=== PATIENT | male | born 1940 | race Caucasian/White ===

== ENCOUNTER → 2020-06-01 | Outpatient (CLI) | payer OTHER ==
[2020-06-01 07:36] LABS: POTASSIUM 4.7 mmol/L (3.5-5.1)
== END ==
LOC: M.LAB 04:53
PROVIDERS: ATTEND Anesthesiology
DX: E11.9 Type 2 diabetes mellitus without complications (principal); E87.6 Hypokalemia

== ENCOUNTER 2020-10-17 18:18 | Emergency (ER) | payer OTHER ==
[~2020-10-17] VITALS: Ht 172.7 cm; Wt 77.1 kg
[2020-10-17 18:53] LABS: HEMATOCRIT 44.2 % (42.0-52.0); HEMOGLOBIN 15.1 gm/dL (14.0-18.0); MCH 28.7 pg (26.0-34.0); MCHC 34.3 g/dL (28.0-37.0); MCV 83.9 fL (80.0-100.0); NUCLEATED RBCS 0 /100WBC; PLATELET COUNT* 236 thou/uL (150-400); RBC 5.27 mil/uL (4.50-6.00); RDW-CV 12.2 % (10.5-14.5); WBC 9.1 thou/uL (4.0-11.0)
[2020-10-17 18:57] LABS: CALCIUM 8.9 mg/dL (8.5-10.1); CREATININE 1.5 mg/dL (0.6-1.3); POTASSIUM 3.7 mmol/L (3.5-5.1)
[2020-10-17 19:07] LABS: ALBUMIN 3.3 g/dL (3.4-5.0); TOTAL BILIRUBIN 1.2 mg/dL (<0.1-1.0); TOTAL PROTEIN 6.8 g/dL (6.4-8.2)
[2020-10-17 19:27] LABS: ABSOLUTE LYMPHOCYTES 0.6 thou/uL (0.8-5.3); ABSOLUTE MONOCYTES 0.2 thou/uL (0.0-1.2); ABSOLUTE NEUTROPHILS 8.3 thou/uL (1.6-8.1); PLATELET ESTIMATE ADEQUATE
[2020-10-17] MEDS ORDERED: VENTOLIN HFA 1818 GM INH (20:45)
[2020-10-17] MEDS ORDERED: ZPAK PO (20:45)
[2020-10-17] MEDS ORDERED: DEXAMETHASONE 44 M1 PO (20:45)
[2020-10-17 21:25] VITALS: BP 122/67
--- NOTE | 2020-10-18 10:18 | EKG ---
[place] [address] ELECTROCARDIOGRAM REPORT Name: KELSEY SCHMID Room: [facility]#: [id number] Admission: 10/17/20 Attend Phys: Discharge: 10/17/20 Date of : 36 Date of Service: 10/17/20 184 Report #: [id number] THIS REPORT FOR: //name// [facility] ED Test Date: 2020-10-17 Test Time: 18:42:21 Pat Name: KELSEY SCHMID Department: Room: Gender: Ceramist: S : 1940 Requested By: Ruben Felix Order Number: [id number] MD: Larry Carbajal Measurements Intervals [place] Rate: 74 P: 43 DC: 154 QRS: -39 QRSD: 119 T: 39 QT: 409 QTc: 454 Interpretive Statements Sinus rhythm Nonspecific IVCD with LAD Left ventricular hypertrophy No previous ECG available for comparison Electronically Signed On 10-18-2020 10:18:24 OUTBOUND SALES PROFESSIONAL by Larry Carbajal [email or web address] <ELECTRONICALLY SIGNED> By: Larry Carbajal MD, [facility] 10/18/20 [phone] Larry Carbajal MD, [facility] /EPI
== END 2020-10-17 21:25 | disposition home or self-care (01) ==
LOC: M.ERS 18:18
PROVIDERS: Emergency Medicine
DX: U07.1 COVID-19 (principal); J12.82 Pneumonia due to coronavirus disease 2019; K21.9 Gastro-esophageal reflux disease without esophagitis; E11.9 Type 2 diabetes mellitus without complications; Z88.0 Allergy status to penicillin

== ENCOUNTER 2020-10-23 10:58 | Inpatient (IN) | payer OTHER ==
[~2020-10-23] VITALS: Ht 172.7 cm; Wt 68.7 kg
[~2020-10-23 10:58] MED LIST: DEXAMETHASONE 44 M1 PO; VENTOLIN HFA 1818 GM INH; ZPAK PO
[2020-10-23 11:05] VITALS: BP 145/61
[2020-10-23 11:38] LABS: BE -1.2 mmol/L (-2 to +3); PCO2 22.9 mmHg (35.0-45.0); PO2 60.3 mmHg (75.0-100.0); pH 7.544 (7.340-7.450)
[2020-10-23 11:38] LABS: HEMATOCRIT 38.9 % (42.0-52.0); MCH 28.6 pg (26.0-34.0); MCHC 33.3 g/dL (28.0-37.0); MCV 85.9 fL (80.0-100.0); NUCLEATED RBCS 0 /100WBC; PLATELET COUNT* 242 thou/uL (150-400); RBC 4.53 mil/uL (4.50-6.00); RDW-CV 12.2 % (10.5-14.5); WBC 11.4 thou/uL (4.0-11.0)
[2020-10-23 11:47] LABS: CALCIUM 8.1 mg/dL (8.5-10.1); CREATININE 1.5 mg/dL (0.6-1.3); POTASSIUM 4.2 mmol/L (3.5-5.1)
[2020-10-23 11:54] LABS: ALBUMIN 3.3 g/dL (3.4-5.0); TOTAL BILIRUBIN 1.1 mg/dL (<0.1-1.0); TOTAL PROTEIN 6.4 g/dL (6.4-8.2)
[2020-10-23 12:05] LABS: ABSOLUTE EOSINOPHILS 0.1 thou/uL (0.0-0.7); ABSOLUTE LYMPHOCYTES 0.8 thou/uL (0.8-5.3); ABSOLUTE NEUTROPHILS 10.5 thou/uL (1.6-8.1); HYPOCHROMASIA 1+; PLATELET ESTIMATE ADEQUATE
--- NOTE | 2020-10-23 14:28 | EKG ---
[place] [address] ELECTROCARDIOGRAM REPORT Name: SHARMAINEKELSEY PRESTON Room: [place] [address] ADM IN [facility]#: [id number] Admission: 10/23/20 Attend Phys: Kofi Crawford, Discharge: Date of : 36 Date of Service: 10/23/20 1127 Report #: [id number] THIS REPORT FOR: //name// [facility] ED Test Date: 2020-10-23 Test Time: 11:27:27 Pat Name: KELSEY SCHMID Department: Room: [facility] Gender: M Rolling Machine Operator: CHUCK : 1940 Requested By: Quentin Cervantes Order Number: [id number] MD: Israel Coleman Measurements Intervals [place] Rate: 68 P: -5 MD: 149 QRS: -33 QRSD: 113 T: 16 QT: 393 QTc: 418 Interpretive Statements Sinus rhythm Consider left atrial enlargement Abnormal R-wave progression, late transition Left ventricular hypertrophy Baseline wander in lead(s) I,III,aVL,V4 Compared to ECG 10/17/2020 18:42:21 Intraventricular conduction delay no longer present Electronically Signed On 10-23-2020 14:28:14 AGRONOMY LOCATION MANAGER by Israel Coleman [email or web address] <ELECTRONICALLY SIGNED> By: Israel Coleman MD, [facility] 10/23/20 1428 1127 1127 Israel Coleman MD, [facility] /EPI
[2020-10-23 15:29] VITALS: BP 125/64
[2020-10-23 15:45] VITALS: BP 163/64
[2020-10-23] MEDS ORDERED: PRINIVIL20 M1 PO (19:17)
[2020-10-23] MEDS ORDERED: TRIAMTERENE/HCT1 CA1 PO (19:18)
[2020-10-23] MEDS ORDERED: PRILOSEC OTC20 MG PO (19:18)
[2020-10-23] MEDS ORDERED: GLIPIZIDE 10 MG10 MG PO (19:19)
[2020-10-23] MEDS ORDERED: FLOMAX0.4 MG PO (19:20)
[2020-10-23 20:00] VITALS: BP 129/62
[2020-10-23 20:23] LABS: APTT 23.6 Seconds (25.0-31.3); INR 1.2; PROTIME 12.2 Seconds (9.20-11.50)
[2020-10-23 23:45] VITALS: BP 120/55
[2020-10-24 03:54] VITALS: BP 138/55
[2020-10-24 04:25] LABS: ABSOLUTE EOSINOPHILS 0.1 thou/uL (0.0-0.7); ABSOLUTE LYMPHOCYTES 1.2 thou/uL (0.8-5.3); ABSOLUTE MONOCYTES 0.7 thou/uL (0.0-1.2); ABSOLUTE NEUTROPHILS 10.9 thou/uL (1.6-8.1); BASOPHILS 0.3 %; EOSINOPHILS 0.9 %; HEMATOCRIT 36.1 % (42.0-52.0); LYMPHOCYTES 9.5 %; MCH 28.2 pg (26.0-34.0); MCHC 33.1 g/dL (28.0-37.0); MONOCYTES 5.1 %; NUCLEATED RBCS 0 /100WBC; PLATELET COUNT* 243 thou/uL (150-400); POLYS 84.2 %; RBC 4.25 mil/uL (4.50-6.00); RDW-CV 12.4 % (10.5-14.5)
[2020-10-24 04:46] LABS: ALBUMIN 2.6 g/dL (3.4-5.0); CALCIUM 8.6 mg/dL (8.5-10.1); CREATININE 1.4 mg/dL (0.6-1.3); MAGNESIUM 1.8 mg/dL (1.8-2.4); POTASSIUM 4.3 mmol/L (3.5-5.1); TOTAL BILIRUBIN 0.6 mg/dL (<0.1-1.0); TOTAL PROTEIN 5.1 g/dL (6.4-8.2)
[2020-10-24 08:54] VITALS: BP 145/86
[2020-10-24 12:00] VITALS: BP 142/64
--- NOTE | 2020-10-24 13:54 | 2DMMODE ---
[place] [address] 2 D/M-MODE ECHOCARDIOGRAM Name: SHARMAINEKELSEY Room: [address] IN [facility]#: [id number] Admission: 10/23/20 Attend Phys: Kofi Crawford, Discharge: Date of : 36 Date of Service: 10/24/20 1354 Report #: [id number] THIS REPORT FOR: cc: Yves Collins Steve T. DO Liston, Michael J. MD [facility] ~ APPROVED REPORT Study performed: 10/24/2020 10:38:34 EXAM: Comprehensive 2D, Doppler, and color-flow Echocardiogram Patient Location: In-Patient Room #: [facility] Status: routine BSA: 1.90 HR: 69 bpm BP: 138/55 mmHg Rhythm: NSR Other Information Study Quality: Good Indications Pulmonary Embolism 2D Dimensions IVSd: 12.37 (7-11mm) LVOT Diam: 20.07 (18-24mm) LVDd: 42.60 mm PWd: 9.02 (7-11mm) Ascending Ao: 36.26 (22-36mm) LVDs: 22.35 (25-40mm) Aortic Root: 35.93 mm Volumes Left Atrial Volume (Systole) LA ESV Index: 19.80 mL/m2 Aortic Valve AoV Peak Melchor.: 1.43 m/s AO Peak Gr.: 8.18 mmHg LVOT Max P.78 mmHg AO Mean Gr.: 4.53 mmHg LVOT Mean P.59 mmHg LVOT Max V: 1.48 m/s AO V2 VTI: 29.20 cm LVOT Mean V: 0.85 m/s DINESH (VTI): 3.42 cm2 LVOT V1 VTI: 31.52 [place] [address] 2 D/M-MODE ECHOCARDIOGRAM Name: KELSEY SCHMID Room: [address] IN [facility].#: [id number] Admission: 10/23/20 Attend Phys: Kofi Crawford, Discharge: Date of : 36 Date of Service: 10/24/20 1354 Report #: [id number] Mitral Valve E/A Ratio: 0.65 MV Decel. Time: 317.02 ms MV E Max Melchro.: 0.80 m/s MV PHT: 91.94 ms MVA (PHT): 2.39 cm2 TDI E/Lateral E': 8.00 E/Medial E': 8.89 Medial E' Melchor.: 0.09 m/s Lateral E' Melchor.: 0.10 m/s Pulmonary Valve PV Peak Melchor.: 0.97 m/s PV Peak Gr.: 3.73 mmHg Left Ventricle The left ventricle is normal size. There is normal LV segmental wall motion. There is normal left ventricular wall thickness. Left ventricular systolic function is normal. LVEF is 60-65%. Grade I - abnormal relaxation pattern. Right Ventricle The right ventricle is normal size. The right ventricular systolic function is normal. Atria The left atrium size is normal. The right atrium size is normal. Aortic Valve Mild aortic valve sclerosis. No aortic regurgitation is present. There is no aortic valvular stenosis. Mitral Valve There is mitral annular calcification. There is no mitral valve regurgitation noted. No evidence of mitral valve stenosis. Tricuspid Valve The tricuspid valve is normal in structure. Unable to assess PA pressure. Trace tricuspid regurgitation. Pulmonic Valve The pulmonary valve is normal in structure. Trace pulmonic regurgitation[place] [address] 2 D/M-MODE ECHOCARDIOGRAM Name: KELSEY SCHMID Room: [address] IN [facility]#: [id number] Admission: 10/23/20 Attend Phys: Kofi Crawford, Discharge: Date of : 36 Date of Service: 10/24/20 1354 Report #: [id number] The aortic root is normal in size. IVC is normal in size and collapses >50% with inspiration. Pericardium There is no pericardial effusion. <Conclusion> The left ventricle is normal size. There is normal left ventricular wall thickness. Left ventricular systolic function is normal. LVEF is 60-65%. Grade I - abnormal relaxation pattern. There is normal LV segmental wall motion. Mild aortic valve sclerosis. There is no aortic valvular stenosis. There is mitral annular calcification. Unable to assess PA pressure. Trace tricuspid regurgitation. <ELECTRONICALLY SIGNED> By: Kashmir Darnell MD, FACC 10/24/20 1354 1354 1354 Kashmir Darnell MD, FACC /INF
[2020-10-24 17:16] VITALS: BP 121/56
[2020-10-24 20:00] VITALS: BP 128/61
[2020-10-25 07:56] VITALS: BP 149/73
[2020-10-25 12:00] VITALS: BP 117/45
[2020-10-25 12:48] LABS: HEMATOCRIT 38.4 % (42.0-52.0); HEMOGLOBIN 12.6 gm/dL (14.0-18.0); MCH 28.3 pg (26.0-34.0); MCHC 32.8 g/dL (28.0-37.0); MCV 86.3 fL (80.0-100.0); MPV 8.1 fl. (7.2-11.1); NUCLEATED RBCS 0 /100WBC; PLATELET COUNT* 252 thou/uL (150-400); RBC 4.45 mil/uL (4.50-6.00); RDW-CV 12.3 % (10.5-14.5); WBC 12.2 thou/uL (4.0-11.0)
[2020-10-25 12:57] LABS: ALBUMIN 2.7 g/dL (3.4-5.0); CALCIUM 9.1 mg/dL (8.5-10.1); CREATININE 1.5 mg/dL (0.6-1.3); POTASSIUM 4.7 mmol/L (3.5-5.1); TOTAL BILIRUBIN 0.5 mg/dL (<0.1-1.0); TOTAL PROTEIN 5.3 g/dL (6.4-8.2)
[2020-10-25 13:14] LABS: ABSOLUTE EOSINOPHILS 0.1 thou/uL (0.0-0.7); ABSOLUTE LYMPHOCYTES 1.7 thou/uL (0.8-5.3); ABSOLUTE MONOCYTES 0.9 thou/uL (0.0-1.2); ABSOLUTE NEUTROPHILS 9.5 thou/uL (1.6-8.1); PLATELET ESTIMATE ADEQUATE
--- NOTE | 2020-10-25 15:55 | CON ---
[address] [address] CONSULTATION Name: KELSEY SCHMID Room: [address] IN [facility]#: [id number] Admission: 10/23/20 Attend Phys: Kofi Crawofrd MD Discharge: Date of : 36 Report #: [id number] THIS REPORT FOR: cc: Yves Collins Steve T. DO ~ Pervez, Adeel MD DATE OF SERVICE: 10/24/2020 CONSULT REQUESTED BY: Kofi Crawford MD INDICATION FOR CONSULTATION: COVID-19. HISTORY OF PRESENT ILLNESS: This is an 80-year-old gentleman, past medical history includes a history of diabetes. The patient only has a remote history of smoking. He has previously not been diagnosed with a cardiac or respiratory disease. The patient was recently diagnosed with COVID-19 and then as an outpatient did receive [id number] antibodies on 10/16. The patient's primary complaint has been shortness of breath. The patient says that he had worsening shortness of breath on exertion; and therefore, eventually came to the Emergency Room yesterday to where he was sent by his primary care physician's office. The patient has only an occasional cough. There is not much sputum. There is no chest pain. He is currently not describing upper respiratory complaints. He also does not have swelling of lower extremities or calf pain. His shortness of breath is on exertion. He says that just walking a step or two makes him significantly short of breath. The patient, however, is not complaining of shortness of breath at rest in bed at this time. The patient also complains of significant insomnia, in fact received Restoril last night, says that he still could not sleep. The patient, however, reports that his shortness of breath is better than yesterday. The patient had a CTA chest, which was done yesterday. He does have pulmonary emboli. There are also bilateral infiltrates consistent with COVID-19 noted, likely there is a component of mild increase in pulmonary vascular congestion as well and I suspect that there may be superimposed secondary bacterial infection. Also, chest x-ray does look better than yesterday today. REVIEW OF SYSTEMS: The patient's review of systems for 12 points is negative except as mentioned above. The patient had significant hyperglycemia on initial presentation with glucoses up to 500 recorded. PAST MEDICAL HISTORY: Diabetes, [place] [address] CONSULTATION Name: KELSEY SCHMID Room: [address]#: [id number] Admission: 10/23/20 Attend Phys: Kofi Crawford MD Discharge: Date of : 36 Report #: [id number] SOCIAL HISTORY: He says that when he was younger, he may have smoked about half pack a day for 8-9 years, otherwise for many years, he has not smoked now. No known history of heavy alcohol use or illegal drug use. CURRENT MEDICATIONS: List in [place] reviewed. HOME MEDICATIONS: List in [place] reviewed. Also, note that he received [id number] antibodies recently. FAMILY HISTORY: There is no pertinent family history. PHYSICAL EXAMINATION: GENERAL: He is alert, awake and oriented, appears to be mildly short of breath at rest. VITAL SIGNS: He has a pulse of 63 and a blood pressure of 145/86. He is saturating 95%. He is on 2 liters nasal cannula. HEENT: Head is normocephalic and atraumatic. Mucous membranes appear to be moist. NECK: Does not show raised JVP, asymmetry, mass or lymph nodes. CHEST: Symmetrical expansion on inspection and palpation. On auscultation, breath sounds are bilaterally equal. I do not hear any added sounds. HEART: Regular. There is no murmur. ABDOMEN: Soft and nontender. EXTREMITIES: Lower extremities show no edema, no calf tenderness. SKIN: Dry and intact. NEUROLOGICAL: Moves all extremities bilaterally equally and spontaneously with no focal deficit identified. The patient has had two chest x-rays since he was admitted as above. There is improvement in the second chest x-ray compared with the first. CTA chest also fills as well as report reviewed. See further discussion as above. I do not have an older chest x-ray available to compare. ASSESSMENT AND PLAN: 1. Shortness of breath. The patient has acute pulmonary embolism secondary to COVID-19. In addition, there is a viral pneumonia secondary to COVID-19 and I suspect that there is a secondary bacterial infection as well. This is the etiology of the patient's shortness of breath. 2. COVID-19. For now, we will continue to treat with dexamethasone 6 mg daily as well as remdesivir as currently ordered. I note that his LFTs are elevated. The benefits of remdesivir still appeared to be outweighing the risks; and therefore, we will still continue the same. In case the patient develops worsening hypoxemia then considering that he has already also received wqyb-[id number]-94 antibodies, I would in fact have a low threshold of giving him [address] [address] CONSULTATION Name: KELSEY SCHMID Room: [address] IN [facility]#: [id number] Admission: 10/23/20 Attend Phys: Kofi Crawford MD Discharge: Date of : 36 Report #: [id number] Actemra. Certainly, it is not indicated at this time. Also, if he worsens, we will need to assess as to whether we should give him convalescent plasma. I also held off on the same for now. We will watch his LFTs closely. 3. Pulmonary infiltrates. As above I have suspicion that there is a secondary bacterial infection as well. I agree with continuing Levaquin as ordered by Dr. Crawford. The nasal swab for MRSA is pending. 4. Acute pulmonary embolism. This appears to be related to COVID-19. For now, continue with anticoagulation. I ordered Lovenox. This could be switched over to oral Eliquis soon. The length of anticoagulation remains to be determined. I would suggest continuing anticoagulation for about 3 months and then reevaluate. We will also do venous Dopplers and a 2D echo and then assess this further. 5. Atelectasis. There is a component of atelectasis on the patient's x-ray as well. I suggest incentive spirometry. I also suggest that he should lie prone or on his sides when in bed. If venous Dopplers are negative then I would recommend that he gets out of bed, gets into a chair, in fact ambulates in the room. 6. Suspected component of bronchospasm. He is on Decadron as above. I also ordered albuterol inhaler. In case he has worsening in his shortness of breath then I would have a low threshold of switching this over to nebulized bronchodilators. 7. Diabetes. Significant hyperglycemia on initial presentation noted. 8. Gastroesophageal reflux disease. He is on Protonix. 9. Clostridium difficile prophylaxis. We will order Lactinex. Thanks for this consultation. <ELECTRONICALLY SIGNED> By: Amauri Oviedo MD 10/25/20 1555 1201 [id number] Oviedo MD /nt
[2020-10-25 16:00] VITALS: BP 126/52
[2020-10-26] VITALS: BP 156/72
[2020-10-26 04:30] VITALS: BP 155/71
[2020-10-26 05:03] LABS: ALBUMIN 2.7 g/dL (3.4-5.0); CALCIUM 8.6 mg/dL (8.5-10.1); CREATININE 1.4 mg/dL (0.6-1.3); MAGNESIUM 1.9 mg/dL (1.8-2.4); PHOSPHORUS* 4.3 mg/dL (2.5-4.9); POTASSIUM 4.6 mmol/L (3.5-5.1); TOTAL BILIRUBIN 0.6 mg/dL (<0.1-1.0); TOTAL PROTEIN 5.7 g/dL (6.4-8.2)
[2020-10-26 05:12] LABS: ABSOLUTE EOSINOPHILS 0.1 thou/uL (0.0-0.7); ABSOLUTE LYMPHOCYTES 1.1 thou/uL (0.8-5.3); ABSOLUTE MONOCYTES 0.9 thou/uL (0.0-1.2); ABSOLUTE NEUTROPHILS 10.6 thou/uL (1.6-8.1); BASOPHILS 0.3 %; EOSINOPHILS 0.5 %; HEMATOCRIT 37.5 % (42.0-52.0); HEMOGLOBIN 12.5 gm/dL (14.0-18.0); LYMPHOCYTES 8.8 %; MCH 28.5 pg (26.0-34.0); MCHC 33.4 g/dL (28.0-37.0); MCV 85.5 fL (80.0-100.0); MONOCYTES 7.2 %; MPV 7.9 fl. (7.2-11.1); NUCLEATED RBCS 0 /100WBC; PLATELET COUNT* 285 thou/uL (150-400); POLYS 83.2 %; RBC 4.39 mil/uL (4.50-6.00); RDW-CV 12.5 % (10.5-14.5); WBC 12.8 thou/uL (4.0-11.0)
[2020-10-26 11:46] VITALS: BP 122/62
[2020-10-26 16:30] VITALS: BP 121/64
[2020-10-26 20:00] VITALS: BP 113/79
[2020-10-26 23:42] VITALS: BP 125/62
[2020-10-27 03:57] VITALS: BP 112/61
[2020-10-27 04:09] LABS: HEMOGLOBIN 12.2 gm/dL (14.0-18.0); MCH 28.1 pg (26.0-34.0); MCHC 32.9 g/dL (28.0-37.0); MCV 85.6 fL (80.0-100.0); MPV 7.8 fl. (7.2-11.1); RBC 4.32 mil/uL (4.50-6.00); RDW-CV 12.5 % (10.5-14.5)
[2020-10-27 04:33] LABS: ALBUMIN 2.6 g/dL (3.4-5.0); CALCIUM 8.4 mg/dL (8.5-10.1); CREATININE 1.4 mg/dL (0.6-1.3); MAGNESIUM 1.7 mg/dL (1.8-2.4); POTASSIUM 4.4 mmol/L (3.5-5.1); TOTAL BILIRUBIN 0.5 mg/dL (<0.1-1.0); TOTAL PROTEIN 5.3 g/dL (6.4-8.2)
[2020-10-27] MEDS ORDERED: ELIQUIS5 MG PO (07:50)
[2020-10-27] MEDS ORDERED: ELIQUIS5 M1 PO (07:50)
[2020-10-27] MEDS ORDERED: GLIPIZIDE 10 MG10 MG PO (07:50)
[2020-10-27] MEDS ORDERED: LEVOFLOXACIN500 MG PO (07:50)
[2020-10-27 12:00] VITALS: BP 117/72
[2020-10-27 15:50] VITALS: BP 117/72
== END 2020-10-27 16:50 | disposition home or self-care (01) | DRG 177 ==
LOC: M.ERS 10:58 → M.2W 12:56 → M.TBA-ER 12:56 → M.2W 15:47
PROVIDERS: Emergency Medicine Emergency Medical Services; Internal Medicine; Internal Medicine Critical Care Medicine; ADMIT Internal Medicine; ATTEND Internal Medicine
PROC: XW033E5 Introduction of Remdesivir Anti-infective into Peripheral Vein, Percutaneous Approach, New Technology Group 5 (ICD-10-PCS; principal; 2020-10-23)
DX: U07.1 COVID-19 (principal); E11.00 Type 2 diabetes mellitus with hyperosmolarity without nonketotic hyperglycemic-hyperosmolar coma (NKHHC); J12.82 Pneumonia due to coronavirus disease 2019; I26.99 Other pulmonary embolism without acute cor pulmonale; N17.9 Acute kidney failure, unspecified; R65.10 Systemic inflammatory response syndrome (SIRS) of non-infectious origin without acute organ dysfunction; J98.11 Atelectasis; E87.1 Hypo-osmolality and hyponatremia; I82.441 Acute embolism and thrombosis of right tibial vein; R06.03 Acute respiratory distress; K21.9 Gastro-esophageal reflux disease without esophagitis; E11.9 Type 2 diabetes mellitus without complications; Z88.0 Allergy status to penicillin; E11.65 Type 2 diabetes mellitus with hyperglycemia; Z79.899 Other long term (current) drug therapy

== ENCOUNTER → 2021-08-03 | Outpatient (CLI) | payer OTHER ==
[~2021-08-03] MED LIST changes: +ELIQUIS5 M1 PO; +ELIQUIS5 MG PO; +FLOMAX0.4 MG PO; +GLIPIZIDE 10 MG10 MG PO; +LEVOFLOXACIN500 MG PO; +PRILOSEC OTC20 MG PO; +PRINIVIL20 M1 PO; +TRIAMTERENE/HCT1 CA1 PO
[2021-08-03 09:56] LABS: CREATININE 1.4 mg/dL (0.6-1.3)
== END ==
LOC: M.LAB 07-27 13:42 → M.CT 11:00
DX: J98.11 Atelectasis (principal); J84.9 Interstitial pulmonary disease, unspecified; I67.2 Cerebral atherosclerosis; I26.99 Other pulmonary embolism without acute cor pulmonale

== ENCOUNTER → 2021-09-12 | Outpatient (CLI) | payer OTHER | LOC: M.CT 09-07 09:15 | DX: M51.26 Other intervertebral disc displacement, lumbar region (principal); M51.27 Other intervertebral disc displacement, lumbosacral region; M48.061 Spinal stenosis, lumbar region without neurogenic claudication; M48.07 Spinal stenosis, lumbosacral region; M47.816 Spondylosis without myelopathy or radiculopathy, lumbar region; M43.28 Fusion of spine, sacral and sacrococcygeal region; M25.78 Osteophyte, vertebrae; N28.1 Cyst of kidney, acquired; N20.0 Calculus of kidney ==